=== PATIENT | female | born 1960 | race Caucasian/White ===

== ENCOUNTER 2016-08-14 17:58 | Inpatient (IN) | payer MEDICARE ==
--- NOTE | 2016-08-14 18:08 | EDPRACDOC ---
- History of Present Illness Symptoms Started: 3 WEEKS HPI: PT STATES "I THINK I HAVE PNEUMONIA AGAIN", STATES NON-PROD COUGH, SOBR, CHEST TIGHTNESS, PAIN BILATERAL RIBS, WHEEZING, NO N/V. PT STATES FINISHED ZPAK 3 DAYS AGO AND FEELS NO BETTER. USING NEBS AT HOME WITHOUT RELIEF. Symptoms: Reports: Cough, Fever, Headache, Nasal Symptoms, Myalgia Recently Treated Infections:: Reports: Pneumonia Recent Medications: Reports: Antibiotics Relevant History Of: Reports: COPD Shortness of Breath: Moderate Cough Frequency: Intermittent Cough Description: Reports: Non-productive Rhinorrhea: Reports: Clear Ear Symptoms: Reports: None Associated Signs and Symptoms: Reports: Cough, Fever, Headache, Nasal Symptoms, Myalgia <Prince Sanchez - Last Filed: 08/14/16 19:09> <Juan A España - Last Filed: 08/14/16 19:30> - General Information Stated Complaint: POSSIBLE PNEUMONIA Time Seen by Provider: 08/14/16 18:02 Home Medications: Home Medications Esomeprazole Mag Trihydrate [Nexium] 40 mg PO DAILY 02/26/15 Doxepin HCl 25 mg PO HS #30 03/02/15 Duloxetine HCl [Cymbalta] 60 mg PO DAILY #30 03/02/15 Gabapentin [Neurontin] 300 mg PO TID #100 03/02/15 Levothyroxine [Synthroid, Levoxyl] 75 mcg PO DAILY #30 03/02/15 Albuterol Sulfate [Proair Hfa] 2 puff INH Q4-6H PRN 01/09/16 Ibuprofen Tablet [Motrin] 800 mg PO TID PRN 01/09/16 Linaclotide [Linzess] 290 mcg PO DAILY PRN 01/09/16 Albuterol/Ipratropium Neb [Duoneb] 3 ml NEB RTQ6 #120 nebu 01/12/16 Atorvastatin Calcium [Lipitor] 40 mg PO DAILY 07/07/16 Calcium Carbonate/Vitamin D3 [Calcium 600 + Vit D 400 Softgl] 1 cap PO BID 07/07 Alprazolam [Xanax] 1 mg PO BID PRN 08/14/16 Metformin HCl [Metformin HCl ER] 500 mg PO DAILY 08/14/16 Oxycodone HCl [Oxycodone Immediate Release] 10 mg PO Q8H PRN 08/14/16 Promethazine [Phenergan] 25 mg PO Q8H PRN 08/14/16 Sumatriptan Succinate [Imitrex] 100 mg PO DIR PRN 08/14/16 Allergies/Adverse Reactions: Allergies Allergy/AdvReac Type Severity Reaction Status Date / Time acetaminophen Allergy Hives* Verified 07/07/16 13:04 [From Darvocet-N] propoxyphene HCl Allergy Hives* Verified 07/07/16 13:04 [From Darvon] propoxyphene napsylate Allergy Hives* Verified 07/07/16 13:04 [From Darvocet-N] ED Past Medical History - History Reviewed Yes Nurses notes reviewed and agree except as marked - Patient Medical History Neurological History: Reports: Cerebrovascular Accident Cardiac History: Reports: Hypertension (- resolved per pt), Hypercholesterolemia Respiratory History: Reports: COPD, Pneumonia (03/01) GI/ History: Reports: Gastroesophageal Reflux, Ulcer Musculoskeletal History: Reports: Arthritis Psychological History: Reports: Depression, Anxiety Systemic History: Reports: Cancer, Diabetes (With neuropathy), Hypothyroidism Additional Past Medical History: CHRONIC PAIN Surgical History: Reports: Hysterectomy, Tonsillectomy/Adnoidectomy - Family Medical History Reports: Hypertension (FATHER), Diabetes (MOTHER), Cancer (Father of lung cancer), Stroke (MATERNAL GRANDMOTHER), Respiratory Disorders (Mother with COPD) - Social Medical History Smoking Status: Light tobacco smoker (less than 5/day) ETOH: None Substance Abuse: None <Prince Sanchez - Last Filed: 08/14/16 19:09> EDM Review of Systems - Review of Systems Constitutional: Chills. negative: Fever Eyes: negative: Blurred Vision, Double Vision Ears: negative: Drainage, Pain Throat: Pain Nose: Congestion. negative: Discharge Respiratory: Cough, Shortness of Breath, Wheezing Cardiovascular: negative: Chest Pain, Palpitations Gastrointestinal: negative: Diarrhea, Nausea, Pain, Vomiting Genitourinary: negative: Dysuria, Frequency Neurological: Headache. negative: Dizziness, Numbness, Weakness Musculoskeletal: No Symptoms Reported Integumentary: No Symptoms Reported <Prince Sanchez - Last Filed: 08/14/16 19:09> - Physical Exam Constitutional: Alert (Awake), No apparent distress Oriented to: Time, Person, Place Last recorded Vital Signs: Oxygen Pulse Oxygen Saturation O2 Device Oxygen Flow Rate Fraction of Inspired Oxygen ( FIO2) - HEENT Head: Normal ( normocephalic) Eye Exam: Normal (PERRL, EOMI, Sclera white) Oropharynx: Normal (Pharynx:Moist without exudate,Gums-no swelling) Tympanic Membrane: Normal ENT EAC: Normal TMJ: Normal Nose: No Symptoms Reported (septum midline) Neck: Normal (FROM, trachea at midline) - Respiratory/Cardiovascular Respiratory: Wheezes. negative: Accessory Muscle Use, Retractions Cardiovascular: Normal (RRR without murmur, gallop or rub) - GI Auscultation: Normal (NABS) Palpation: Normal (Soft,No rebound or guarding, non distended) Tenderness: Non tender Staton's Sign: Negative - Musculoskeletal Back: Normal (Non-Tender) Extremities: Normal (Normal tone, Pulses 2+ No cyanosis or edema, FROM) - Integumentary Skin: Normal, Warm, Dry Lymphatics: Normal (no adenopathy) - Neurologic Memory Impaired: Normal Motor Function: Normal (Normal tone, Pulses 2+ No cyanosis or edema, FROM) Cranial Nerve: Normal (CN II-X11 intact sensation, strength 5/5) Cerebellar: Normal Mood Description: Normal Perception: Normal <Prince Sanchez - Last Filed: 08/14/16 19:09> - Physical Exam Last recorded Vital Signs: Last Vital Signs Temp 97.5 F 08/14/16 17:58 Pulse 92 08/14/16 18:42 Resp 21 08/14/16 18:42 BP 155/79 08/14/16 18:42 Pulse Ox 93 08/14/16 18:42 Oxygen Pulse Oxygen Saturation 93 O2 Device Oxygen Flow Rate 2 Fraction of Inspired Oxygen ( FIO2) <Juan A España - Last Filed: 08/14/16 19:30> - Differential Diagnosis Bronchitis, Otitis Media, Pneumonia - Re-evaluation Re-evaluation 1 Re-evaluation Time: 19:09 (BREATHING BETTER, HAS "MIGRAINE") - Results 08/14/16 18:26 08/14/16 18:26 08/14/16 19:09 Laboratory Results - last 24 hr 08/14/16 08/14/16 08/14/16 18:15 18:26 18:26 WBC RBC Hgb Hct MCV MCH MCHC RDW Plt Count MPV Neut % (Auto) Lymph % (Auto) [place] % (Auto) Eos % (Auto) Baso % (Auto) Absolute Neuts (auto) Absolute Lymphs (auto) PT INR APTT Puncture Site Right radial pH 7.480 H pCO2 39.0 pO2 54.0 L HCO3 29.0 H Total CO2 30.2 H Base Excess 5.2 H FiO2 % 0.21 Specimen Drawn By Piksa Sodium 138 Potassium 3.7 Chloride 103 Carbon Dioxide 27 Anion Gap 12 BUN 12 Creatinine 0.50 L Estimated GFR (MDRD) > 60 Glucose 102 H Calculated Osmolality 266 L Lactic Acid 2.4 H Calcium 8.9 Corrected Calcium 9.1 Total Bilirubin 0.8 AST 26 ALT 42 Alkaline Phosphatase 81 Troponin I < 0.01 Total Protein 7.0 Albumin 3.8 Lipase 120 08/14/16 08/14/16 18:26 18:26 WBC 13.1 H RBC 5.09 Hgb 14.6 Hct 43.1 MCV 85 MCH 28.6 MCHC 33.7 RDW 16.5 H Plt Count 320 MPV 7.6 Neut % (Auto) 72.9 Lymph % (Auto) 18.8 [place] % (Auto) 7.5 Eos % (Auto) 0.7 Baso % (Auto) 0.1 Absolute Neuts (auto) 9.43 H Absolute Lymphs (auto) 2.36 PT 10.4 INR 1.0 APTT 23.8 Puncture Site pH pCO2 pO2 HCO3 Total CO2 Base Excess FiO2 % Specimen Drawn By Sodium Potassium Chloride Carbon Dioxide Anion Gap BUN Creatinine Estimated GFR (MDRD) Glucose Calculated Osmolality Lactic Acid Calcium Corrected Calcium Total Bilirubin AST ALT Alkaline Phosphatase Troponin I Total Protein Albumin Lipase - EKG EKG #1 EKG Time: 17:56 -: Yes EKG interpreted by me Rate: bpm: 100 [place]: Normal Rhythm: NSR Block: None Hypertrophy: None ST: Normal Comparison: 01/09/16 (NO CHANGE) - Diagnostic Imaging CXR Image interpreted by: Radiologist CHEST 2 VIEW COMPARISON: 01/10/2016 and earlier, including CT chest 02/26/2015. FINDINGS: Cardiac silhouette normal in size, unchanged. Thoracic aorta atherosclerotic, unchanged. Hilar and mediastinal contours otherwise unremarkable. Prominent bronchovascular markings diffusely and moderate to marked central peribronchial thickening, more so than on prior examinations. Focal airspace consolidation in the right middle lobe, silhouetting the right heart border, best seen on the lateral image. No confluent airspace consolidation elsewhere. No pleural effusions. Visualized bony thorax intact. IMPRESSION: Right middle lobe pneumonia superimposed upon moderate to severe changes of acute bronchitis and/or asthma. - Additional Information DISCUSSED WITH DR ESPAÑA, WILL DISCUSS WITH HOSPITALIST. <Prince Sanchez - Last Filed: 08/14/16 19:09> - Results 08/14/16 18:26 08/14/16 18:26 WBC 13.1 xk/uL (3.8-10.8) H 08/14/16 18:26 RBC 5.09 xM/uL (4.20-5.40) 08/14/16 18:26 Hgb 14.6 g/dL (12.0-16.0) 08/14/16 18:26 Hct 43.1 % (36-47) 08/14/16 18:26 MCV 85 fL (81-99) 08/14/16 18: MCH 28.6 pg (27-32) 08/14/16 18:26 MCHC 33.7 g/dl (33-36) 08/14/16 18:26 RDW 16.5 % (11.5-14.5) H 08/14/16 18:26 Plt Count 320 xk/uL (130-400) 08/14/16 18:26 MPV 7.6 fL (7.4-10.4) 08/14/16 18:26 Neut % (Auto) 72.9 % (45-76) 08/14/16 18: Lymph % (Auto) 18.8 % (17-44) 08/14/16 18:26 [place] % (Auto) 7.5 % (3-10) 08/14/16 18:26 Eos % (Auto) 0.7 % (0-5) 08/14/16 18:26 Baso % (Auto) 0.1 % (0-2) 08/14/16 18:26 Absolute Neuts (auto) 9.43 xk/uL (1.7-8.2) H 08/14/16 18:26 Absolute Lymphs (auto) 2.36 xk/uL (0.65-4.75) 08/14/16 18:26 PT 10.4 SEC (9.2-11.2) 08/14/16 18:26 INR 1.0 08/14/16 18:26 APTT 23.8 SEC (22-35) 08/14/16 18:26 Puncture Site Right radial 08/14/16 18:15 pH 7.480 pH UNITS (7.35-7.45) H 08/14/16 18:15 pCO2 39.0 mmHg (35-45) 08/14/16 18:15 pO2 54.0 mmHg (80-100) L 08/14/16 18:15 HCO3 29.0 MMOL/L (22-26) H 08/14/16 18:15 Total CO2 30.2 MMOL/L (23-27) H 08/14/16 18:15 Base Excess 5.2 (+/- 2) H 08/14/16 18:15 FiO2 % 0.21 08/14/16 18:15 Specimen Drawn By Piksa 08/14/16 18:15 Sodium 138 mEq/L (137-146) 08/14/16 18:26 Potassium 3.7 mEq/L (3.5-5.1) 08/14/16 18:26 Chloride 103 mEq/L (98-107) 08/14/16 18:26 Carbon Dioxide 27 mMOL/L (22-33) 08/14/16 18:26 Anion Gap 12 mEq/L (8-16) 08/14/16 18:26 BUN 12 MG/DL (7-17) 08/14/16 18:26 Creatinine 0.50 MG/DL (0.52-1.04) L 08/14/16 18:26 Estimated GFR (MDRD) > 60 mL/min (>=60) 08/14/16 18:26 Glucose 102 MG/DL (70-99) H 08/14/16 18:26 Calculated Osmolality 266 MOs/Kg (270-290) L 08/14/16 18:26 Lactic Acid 2.4 mEq/L (0.7-2.1) H 08/14/16 18:26 Calcium 8.9 MG/DL (8.4-10.2) 08/14/16 18:26 Corrected Calcium 9.1 MG/DL (8.4-10.2) 08/14/16 18:26 Total Bilirubin 0.8 MG/DL (0.2-1.3) 08/14/16 18:26 AST 26 IU/L (14-36) 08/14/16 18:26 ALT 42 IU/L (9-52) 08/14/16 18:26 Alkaline Phosphatase 81 IU/L (38-126) 08/14/16 18:26 Troponin I < 0.01 ng/mL (<.04) 08/14/16 18:26 Total Protein 7.0 G/DL (6.3-8.2) 08/14/16 18:26 Albumin 3.8 G/DL (3.5-5.0) 08/14/16 18:26 Lipase 120 U/L (23-300) 08/14/16 18:26 Urine Color Yellow 08/14/16 19:06 Urine Clarity Sl cldy 08/14/16 19:06 Urine pH 6.0 (5.0-8.0) 08/14/16 19:06 Ur Specific [place] 1.025 (1.003-1.035) 08/14/16 19:06 Urine Protein 1+ (NEG/TRACE) H 08/14/16 19:06 Urine Glucose (UA) Neg (NEGATIVE) 08/14/16 19:06 Urine Ketones Neg (NEGATIVE) 08/14/16 19:06 Urine Occult Blood Neg (NEG/TRACE) 08/14/16 19:06 Urine Nitrite Neg (NEGATIVE) 08/14/16 19:06 Urine Bilirubin Neg (NEGATIVE) 08/14/16 19:06 Urine Urobilinogen <2.0 MG/DL (0-1) 08/14/16 19:06 Ur Leukocyte Esterase Neg (NEGATIVE) 08/14/16 19:06 Urine RBC 0-2 (0-5) 08/14/16 19:06 Urine WBC 2-5 (0-5) 08/14/16 19:06 Ur Epithelial Cells 3+ 08/14/16 19:06 Urine Bacteria Few (NEG/FEW) 08/14/16 19:06 Urine Mucus Sm amt (NEG/OCC) 08/14/16 19:06 Lab Results 08/14/16 08/14/16 08/14/16 19:06 18:26 18:26 WBC 13.1 H RBC 5.09 Hgb 14.6 Hct 43.1 MCV 85 MCH 28.6 MCHC 33.7 RDW 16.5 H Plt Count 320 MPV 7.6 Neut % (Auto) 72.9 Lymph % (Auto) 18.8 [place] % (Auto) 7.5 Eos % (Auto) 0.7 Baso % (Auto) 0.1 Absolute Neuts (auto) 9.43 H Absolute Lymphs (auto) 2.36 PT 10.4 INR 1.0 APTT 23.8 Puncture Site pH pCO2 pO2 HCO3 Total CO2 Base Excess FiO2 % Specimen Drawn By Sodium Potassium Chloride Carbon Dioxide Anion Gap BUN Creatinine Estimated GFR (MDRD) Glucose Calculated Osmolality Lactic Acid Calcium Corrected Calcium Total Bilirubin AST ALT Alkaline Phosphatase Troponin I Total Protein Albumin Lipase Urine Color Yellow Urine Clarity Sl cldy Urine pH 6.0 Ur Specific [place] 1.025 Urine Protein 1+ H Urine Glucose (UA) Neg Urine Ketones Neg Urine Occult Blood Neg Urine Nitrite Neg Urine Bilirubin Neg Urine Urobilinogen <2.0 Ur Leukocyte Esterase Neg Urine RBC 0-2 Urine WBC 2-5 Ur Epithelial Cells 3+ Urine Bacteria Few Urine Mucus amt 08/14/16 08/14/16 08/14/16 18:26 18:26 18:15 WBC RBC Hgb Hct MCV MCH MCHC RDW Plt Count MPV Neut % (Auto) Lymph % (Auto) [place] % (Auto) Eos % (Auto) Baso % (Auto) Absolute Neuts (auto) Absolute Lymphs (auto) PT INR APTT Puncture Site Right radial pH 7.480 H pCO2 39.0 pO2 54.0 L HCO3 29.0 H Total CO2 30.2 H Base Excess 5.2 H FiO2 % 0.21 Specimen Drawn By Piksa Sodium 138 Potassium 3.7 Chloride 103 Carbon Dioxide 27 Anion Gap 12 BUN 12 Creatinine 0.50 L Estimated GFR (MDRD) > 60 Glucose 102 H Calculated Osmolality 266 L Lactic Acid 2.4 H Calcium 8.9 Corrected Calcium 9.1 Total Bilirubin 0.8 AST 26 ALT 42 Alkaline Phosphatase 81 Troponin I < 0.01 Total Protein 7.0 Albumin 3.8 Lipase 120 Urine Color Urine Clarity Urine pH Ur Specific [place] Urine Protein Urine Glucose (UA) Urine Ketones Urine Occult Blood Urine Nitrite Urine Bilirubin Urine Urobilinogen Ur Leukocyte Esterase Urine RBC Urine WBC Ur Epithelial Cells Urine Bacteria Urine Mucus <Juan A España - Last Filed: 08/14/16 19:30> - Departure Education/Counseling Given To: Patient Education/Counseling Given Regarding: Diagnosis, Treatment, Prognosis, Follow Up <Prince Sanchez - Last Filed: 08/14/16 19:09> - Departure Yes I personally saw and evaluated the patient. Disposition: Admit IP To This Hospital Decision to Admit Time: 19:30 Decision to admit date: 08/14/16 Decision to admit: from ED - Physician Consulted Hospitalist Time Called: 19:30 Provider Called: Jay Rose Time Hospital Laboratory Technician Returned Call: 19:30 <Juan A España - Last Filed: 08/14/16 19:30> - Departure Condition: Stable Final Diagnosis: Community acquired pneumonia, Acute respiratory failure with hypoxia, Failure of outpatient treatment, Severe sepsis Right lower lobe pneumonia Qualifiers: Pneumonia type: due to unspecified organism Qualified Code(s): J18.1 - Lobar pneumonia, unspecified organism Referrals: None,No Provider [Primary Care Provider] - One Week Prescriptions: No Action Esomeprazole Mag Trihydrate [Nexium] 40 mg PO DAILY Duloxetine HCl [Cymbalta] 60 mg PO DAILY #30 Doxepin HCl 25 mg PO HS #30 Gabapentin [Neurontin] 300 mg PO TID #100 Levothyroxine [Synthroid, Levoxyl] 75 mcg PO DAILY #30 Ibuprofen Tablet [Motrin] 800 mg PO TID PRN PRN Reason: Pain Linaclotide [Linzess] 290 mcg PO DAILY PRN PRN Reason: Constipation Albuterol Sulfate [Proair Hfa] 2 puff INH Q4-6H PRN PRN Reason: Shortness Of Breath Albuterol/Ipratropium Neb [Duoneb] 3 ml NEB RTQ6 #120 nebu Calcium Carbonate/Vitamin D3 [Calcium 600 + Vit D 400 Softgl] 1 cap PO BID Atorvastatin Calcium [Lipitor] 40 mg PO DAILY Promethazine [Phenergan] 25 mg PO Q8H PRN PRN Reason: Nausea/Vomiting Oxycodone HCl [Oxycodone Immediate Release] 10 mg PO Q8H PRN PRN Reason: Pain Metformin HCl [Metformin HCl ER] 500 mg PO DAILY Alprazolam [Xanax] 1 mg PO BID PRN PRN Reason: Anxiety Sumatriptan Succinate [Imitrex] 100 mg PO DIR PRN PRN Reason: Migraine Headache
[2016-08-14] MEDS ORDERED: Albuterol/Ipratropium Neb 3 ML NEB NEB ONE ×2 (18:09→19:13)
[2016-08-14 18:18] LABS: ABG Draw Site Right Radial; ALLEN'S TEST PASS; BEb 5.2 (+/- 2); TCO2 30.2 MMOL/L (23-27)
[2016-08-14 18:35] LABS: AUTOMATED BASOPHIL 0.1 % (0-2); AUTOMATED EOSINOPHIL 0.7 % (0-5); AUTOMATED LYMPH 18.8 % (17-44); AUTOMATED MONOCYTE 7.5 % (3-10); AUTOMATED NEUTROPHIL 72.9 % (45-76); MPV 7.6 fL (7.4-10.4)
[2016-08-14 18:47] LABS: PARTIAL THROMB. TIME 23.8 SEC (22-35)
[2016-08-14 18:48] LABS: BLOOD UREA NITROGEN 12 MG/DL (7-17); CALC CORRECTED 9.1 MG/DL (8.4-10.2); CALCIUM 8.9 MG/DL (8.4-10.2); CALCULATED OSMOLALITY 266 MOs/Kg (270-290); CHLORIDE 103 mEq/L (98-107); GLUCOSE 102 MG/DL (70-99); SODIUM LEVEL 138 mEq/L (137-146)
--- NOTE | 2016-08-14 19:08 | DIRPT ---
CLINICAL DATA: Three week history of cough, chest congestion and shortness of breath. EXAM: CHEST 2 VIEW COMPARISON: 01/10/2016 and earlier, including CT chest 02/26/2015. FINDINGS: Cardiac silhouette normal in size, unchanged. Thoracic aorta atherosclerotic, unchanged. Hilar and mediastinal contours otherwise unremarkable. Prominent bronchovascular markings diffusely and moderate to marked central peribronchial thickening, more so than on prior examinations. Focal airspace consolidation in the right middle lobe, silhouetting the right heart border, best seen on the lateral image. No confluent airspace consolidation elsewhere. No pleural effusions. Visualized bony thorax intact. IMPRESSION: Right middle lobe pneumonia superimposed upon moderate to severe changes of acute bronchitis and/or asthma. Electronically Signed By: Jose Cabrera M.D. On: 08/14/2016 19:05
[2016-08-14] MEDS ORDERED: Levofloxacin 500 mg/100 ml D5W 500 MG/100 ML RTU IV ONE (19:13)
[2016-08-14] MEDS ORDERED: KETOROLAC TROMETH 30 MG/ML VIAL IV ONE (19:13)
[2016-08-14] MEDS ORDERED: DIPHENHYDRAMINE 50 MG/ML VIAL IV ONE (19:13)
[2016-08-14] MEDS ORDERED: NS 1,000 ML IV ONE ×3 (19:13→23:12)
[2016-08-14] MEDS ORDERED: METOCLOPRAMIDE 10 MG/2 ML VIAL IV ONE (19:13)
[2016-08-14 19:25] LABS: LEUKOCYTES/URINE NEG (NEGATIVE); NITRITE/URINE NEG (NEGATIVE); RBC/URINE 0-2 (0-5); URINE OCCULT BLOOD NEG (NEG/TRACE)
--- NOTE | 2016-08-14 20:48 | HISTPHYS ---
- Chief Complaint cough, not feeling well - History of Present Illness PRIMARY CARE PROVIDER: Dr. Everett Smith HPI: The patient is a 56 yo woman who presents with shortness of breath. She has been sick for 3 weeks. She had an appointment with her primary care doctor, who gave her a Z pack and an antihistamine, but she continued to get worse. She does have some chest pain with shortness of breath. The chest pain is primarily associated with coughing. Onset: 3 weeks ago. Worse in the last several days. Duration: intermittent. Location: Left and substernal and also bilateral lateral lower ribs (with coughing). Radiation: none. Character: Can't get a good breath. Alleviated by: Nothing. Exacerbated by: Exertion. Associated Symptoms: Chest pain only with coughing. Occasional palpitations after coughing. Coughing that is not very productive. Wheezing. Shortness of breath. No fever but had chills. Diaphoresis. Nausea. No diarrhea. Treatments: none at home except usual medications. The patient states that normally when she has a respiratory infection and flare- up of her respiratory issues, she usually gets very sick and requires IV antibiotics. She states that usually she has IV Levaquin and IV vancomycin. She does have a history of MRSA. She reports she thinks she has had MRSA pneumonia in the past. - Medical History Cardiac History: Reports: Hypertension (- resolved per pt), Hypercholesterolemia Respiratory History: Reports: COPD, Pneumonia (03/01) GI/ History: Reports: Gastroesophageal Reflux, Ulcer Musculoskeletal History: Reports: Arthritis Systemic History: Reports: Cancer, Diabetes (Borderline. With neuropathy), Hypothyroidism Neurological History: Reports: Cerebrovascular Accident Psychological History: Reports: Depression, Anxiety - Surgical History Reports: Hysterectomy, Tonsillectomy/Adnoidectomy - Medictions/Allergies Allergies acetaminophen [From Darvocet-N] Allergy (Verified 07/07/16 13:04) Hives* propoxyphene HCl [From Darvon] Allergy (Verified 07/07/16 13:04) Hives* propoxyphene napsylate [From Darvocet-N] Allergy (Verified 07/07/16 13:04) Hives* Current Medication List: Reviewed Home Medications Esomeprazole Mag Trihydrate [Nexium] 40 mg PO DAILY 02/26/15 Doxepin HCl 25 mg PO HS #30 03/02/15 Duloxetine HCl [Cymbalta] 60 mg PO DAILY #30 03/02/15 Gabapentin [Neurontin] 300 mg PO TID #100 03/02/15 Levothyroxine [Synthroid, Levoxyl] 75 mcg PO DAILY #30 03/02/15 Albuterol Sulfate [Proair Hfa] 2 puff INH Q4-6H PRN 01/09/16 Ibuprofen Tablet [Motrin] 800 mg PO TID PRN 01/09/16 Linaclotide [Linzess] 290 mcg PO DAILY PRN 01/09/16 Albuterol/Ipratropium Neb [Duoneb] 3 ml NEB RTQ6 #120 nebu 01/12/16 Atorvastatin Calcium [Lipitor] 40 mg PO DAILY 07/07/16 Calcium Carbonate/Vitamin D3 [Calcium 600 + Vit D 400 Softgl] 1 cap PO BID 07/07 Alprazolam [Xanax] 1 mg PO BID PRN 08/14/16 Metformin HCl [Metformin HCl ER] 500 mg PO DAILY 08/14/16 Oxycodone HCl [Oxycodone Immediate Release] 10 mg PO Q8H PRN 08/14/16 Promethazine [Phenergan] 25 mg PO Q8H PRN 08/14/16 Sumatriptan Succinate [Imitrex] 100 mg PO DIR PRN 08/14/16 - Family History Reports: Hypertension (FATHER), Diabetes (MOTHER), Cancer (Father of lung cancer), Stroke (MATERNAL GRANDMOTHER), Respiratory Disorders (Mother with COPD) - Social History Smoking Status: Light tobacco smoker (less than 5/day) Social History: Denies: Alcohol Use, Substance Use Disorder - Review of Systems GENERAL: No fever but had chills. Diaphoresis. Positive for fatigue/malaise. HEENT: No ear pain or discharge. No nasal discharge or bleeding. No throat pain or swelling. No eye pain or eye redness. RESPIRATORY: Cough, wheezing, and shortness of breath. CARDIOVASCULAR: Chest pain and palpitations. GI: Nausea. No abdominal pain, vomiting, diarrhea, constipation, or bloody stool. NEUROLOGICAL: No headache or focal weakness. INTEGUMENT: no rashes, itching, or lesions. LYMPHATIC SYSTEM: no lymph node swelling or pain. MUSCULOSKELETAL: no new pain or joint swelling. GENITOURINARY: No dysuria or hematuria. ENDOCRINE: No polyuria or polydipsia. HEME: No chronic anemia, bleeding, or easy bruising. - Physical Exam Vital Signs: Initial Vitals Temperature 97.5 F 08/14/16 17:58 Pulse Rate 100 08/14/16 17:58 Respiratory Rate 19 08/14/16 17:58 Blood Pressure 160/88 08/14/16 17:58 Pulse Oxygen Saturation 91 08/14/16 17:58 Weight: 65.7 kg Height: 5 feet 2 inches BMI: 26.5 - Other Exam Other Exam Findings: GENERAL: Ill-appearing, well nourished, in acute distress. HEENT: Normocephalic, atraumatic; pupils equal and round. Nares patent, without discharge or bleeding. No oropharyngeal lesions or erythema. Mucous membranes are dry. NECK: is supple, no masses, trachea midline. RESPIRATORY: Clear to auscultation bilaterally. Chest wall movements are symmetric. Tachypnea. No use of accessory muscles to breathe. Wheezing. Coarse breath sounds/rhonchi. CARDIOVASCULAR: Normal S1, S2. No rubs, or gallops. PMI non-displaced. Carotids : no carotid bruits. Mild tachycardia. DP pulses 2+ bilaterally. GI: soft, nontender, non-distended, normal active bowel sounds. No hepatosplenomegaly. INTEGUMENT: Clean, dry, and intact. No rashes. No lesions. MUSCULOSKELETAL: Moving all extremities. No cyanosis. No clubbing. Edema: none bilaterally. NEUROLOGICAL: Cranial nerves 2-12 grossly intact. Motor 4/5 throughout. Reflexes : 2+ bilaterally. Babinski: toes downgoing bilaterally. Intact Finger to nose. Sensory grossly intact to light touch. Intact rapid alternating movements bilaterally. No pronator drift. PSYCHIATRIC: Fully oriented. Normal and appropriate affect. LYMPHATIC: No cervical lymphadenopathy. No supraclavicular lymphadenopathy. - Lab Results Laboratory Results - last 24 hr 08/14/16 08/14/16 08/14/16 18:15 18:26 18:26 WBC RBC Hgb Hct MCV MCH MCHC RDW Plt Count MPV Neut % (Auto) Lymph % (Auto) [place] % (Auto) Eos % (Auto) Baso % (Auto) Absolute Neuts (auto) Absolute Lymphs (auto) PT INR APTT Puncture Site Right radial pH 7.480 H pCO2 39.0 pO2 54.0 L HCO3 29.0 H Total CO2 30.2 H Base Excess 5.2 H FiO2 % 0.21 Specimen Drawn By [place] Sodium 138 Potassium 3.7 Chloride 103 Carbon Dioxide 27 Anion Gap 12 BUN 12 Creatinine 0.50 L Estimated GFR (MDRD) > 60 Glucose 102 H Calculated Osmolality 266 L Lactic Acid 2.4 H Calcium 8.9 Corrected Calcium 9.1 Total Bilirubin 0.8 AST 26 ALT 42 Alkaline Phosphatase 81 Troponin I < 0.01 Total Protein 7.0 Albumin 3.8 Lipase 120 Urine Color Urine Clarity Urine pH Ur Specific [place] Urine Protein Urine Glucose (UA) Urine Ketones Urine Occult Blood Urine Nitrite Urine Bilirubin Urine Urobilinogen Ur Leukocyte Esterase Urine RBC Urine WBC Ur Epithelial Cells Urine Bacteria Urine Mucus 08/14/16 08/14/16 08/14/16 18:26 18:26 19:06 WBC 13.1 H RBC 5.09 Hgb 14.6 Hct 43.1 MCV 85 MCH 28.6 MCHC 33.7 RDW 16.5 H Plt Count 320 MPV 7.6 Neut % (Auto) 72.9 Lymph % (Auto) 18.8 [place] % (Auto) 7.5 Eos % (Auto) 0.7 Baso % (Auto) 0.1 Absolute Neuts (auto) 9.43 H Absolute Lymphs (auto) 2.36 PT 10.4 INR 1.0 APTT 23.8 Puncture Site pH pCO2 pO2 HCO3 Total CO2 Base Excess FiO2 % Specimen Drawn By Sodium Potassium Chloride Carbon Dioxide Anion Gap BUN Creatinine Estimated GFR (MDRD) Glucose Calculated Osmolality Lactic Acid Calcium Corrected Calcium Total Bilirubin AST ALT Alkaline Phosphatase Troponin I Total Protein Albumin Lipase Urine Color Yellow Urine Clarity Sl cldy Urine pH 6.0 Ur Specific [place] 1.025 Urine Protein 1+ H Urine Glucose (UA) Neg Urine Ketones Neg Urine Occult Blood Neg Urine Nitrite Neg Urine Bilirubin Neg Urine Urobilinogen <2.0 Ur Leukocyte Esterase Neg Urine RBC 0-2 Urine WBC 2-5 Ur Epithelial Cells 3+ Urine Bacteria Few Urine Mucus Sm amt - Diagnostic Findings EK beats per minute. Normal sinus rhythm. Reviewed EKG personally. Chest x-ray, viewed personally: EXAM: CHEST 2 VIEW COMPARISON: 01/10/2016 and earlier, including CT chest 02/26/2015. FINDINGS: Cardiac silhouette normal in size, unchanged. Thoracic aorta atherosclerotic, unchanged. Hilar and mediastinal contours otherwise unremarkable. Prominent bronchovascular markings diffusely and moderate to marked central peribronchial thickening, more so than on prior examinations. Focal airspace consolidation in the right middle lobe, silhouetting the right heart border, best seen on the lateral image. No confluent airspace consolidation elsewhere. No pleural effusions. Visualized bony thorax intact. IMPRESSION: Right middle lobe pneumonia superimposed upon moderate to severe changes of acute bronchitis and/or asthma. - Assessment (1) Sepsis A41.9 - SEPSIS, UNSPECIFIED ORGANISM Acute Present on Admission: Yes Qualifiers: Sepsis type: S Present on admission. Criteria: White blood cells 13.1. Pulse 100. Lactic acid is 2.4. Source: pneumonia. Plan: Sepsis order set. IV antibiotics. IV fluids to provide volume. Monitor for signs of volume depletion, monitor blood pressure carefully. If still hypotensive with IV fluids consider pressors. Close monitoring. Telemetry. IVF: initial IVF 30 mL/kg x 1, then 250 mL/hr x 1 L, then maintenance IVF. (2) Bacterial pneumonia J15.9 - UNSPECIFIED BACTERIAL PNEUMONIA Acute Present on Admission: Yes Pneumonia. Severe. Requiring continuous oxygen support. Type: Community acquired pneumonia. Patient failed outpatient management with appropriate antibiotics. Patient reports that with pneumonia in the past she is needed IV Levaquin and IV vancomycin. She reports history of MRSA and MRSA pneumonia. Criteria for diagnosis: Chest x-ray suggestive of pneumonia, rhonchi on physical exam. Likely bacterial. Plan: Sputum culture has been ordered. Treat with IV Levaquin. Failed outpatient management with azithromycin. Will add IV vancomycin given patient's history. Monitor oxygen saturation levels. (3) Hypoxia R09.02 - HYPOXEMIA Acute Present on Admission: Yes Patient has dyspnea and is not improving. Patient's PO2 is low. Plan: Place patient on oxygen by nasal cannula and increase to Venti Mask 40% as needed. Monitor oxygen saturation levels and keep O2 sats greater than 92%. (4) COPD exacerbation J44.1 - CHRONIC OBSTRUCTIVE PULMONARY DISEASE W (ACUTE) EXACERBATION Acute Present on Admission: Yes COPD exacerbation, severe. Plan: Nebs of Duoneb q 6 hours scheduled and albuterol q 2 hours prn. Sputum culture ordered. IV Levaquin. IV methylprednisolone. Continuous oxygen support. Keep sats below 95% due to COPD. Case Care Discussed with: Patient, Nursing Staff Total Time: 60 min - Focused CV Perfusion Exam Date exam occurred: 08/14/16 Time of Exam: 22:00 Vital Signs: Vitals: See vitals section. Respiratory: Chest non-tender, Decreased breath sounds, Rhonchi Cardiovascular/Chest: Normal (Normal S1, S2), Tachycardia Capillary Refill: Immediate Peripheral pulses: Full: Radial (R), Radial (L), Dorsalis pedis (R), Dorsalis pedis (L), Posterior tibialis (R), Posterior tibialis (L) Skin Color: Unremarkable Skin Turgor: <3 Seconds
[2016-08-14 22:19] VITALS: BMI 28.3
[2016-08-14] MEDS ORDERED: ALBUTEROL 0.083% 3 ML NEB NEB PRN (23:06)
[2016-08-14] MEDS ORDERED: Non-Formulary Medication ITEM (Oxycodone Hcl [Oxycodone Immediate Release] 10 MG) PO PRN (23:07)
[2016-08-14] MEDS ORDERED: SUMATRIPTAN SUCCINATE 100 MG PO PRN (23:07)
[2016-08-14] MEDS ORDERED: Non-Formulary Medication ITEM (Alprazolam [Xanax] 1 MG) PO PRN (23:07)
[2016-08-14] MEDS ORDERED: ONDANSETRON HCL 4 MG/2 ML VIAL IV PRN (23:11)
[2016-08-14] MEDS ORDERED: PROMETHAZINE 25 MG/ML VIAL IV PRN (23:11)
[2016-08-14] MEDS ORDERED: GUAIFEN 100 MG-DEXTROMETH 10 MG PER 5 ML PO PRN (23:11)
[2016-08-14] MEDS ORDERED: BENZONATATE 100 MG PERLES PO PRN (23:11)
[2016-08-14] MEDS ORDERED: ACETAMINOPHEN 325 MG/TAB TABLET PO PRN (23:11)
[2016-08-14] MEDS ORDERED: TEMAZEPAM 15 MG CAP PO PRN (23:11)
[2016-08-14] MEDS ORDERED: Aluminum;Magnesium;Simethicone 30 ML UDC PO PRN (23:11)
[2016-08-14] MEDS ORDERED: SENNA CONCENTRATE TAB PO PRN (23:11)
[2016-08-14] MEDS ORDERED: BISACODYL 5 MG TAB PO PRN (23:11)
[2016-08-14] MEDS ORDERED: ACETAMINOPHEN 325 MG SUPP PR PRN (23:11)
[2016-08-14] MEDS ORDERED: GLUCAGON 1 MG VIAL SQ PRN (23:12)
[2016-08-14] MEDS ORDERED: GLUCOSE (ORAL GEL) 15 GM TUBE PO PRN (23:12)
[2016-08-14] MEDS ORDERED: DEXTROSE 25 GM/50 ML PFS IV PRN (23:12)
[2016-08-14] MEDS ORDERED: MORPHINE SULFATE 30 MG PO SCH (23:15)
[2016-08-14] MEDS ORDERED: Vancomycin HCl 0 MG in D5W 500 ML IV SCH (23:45)
[2016-08-14] MEDS ORDERED: Pharmacy Order Set Alert SCH (23:45)
[2016-08-15] MEDS: OXYCODONE HCL 5 MG TABLET PO PRN ×2 (00:02→17:15)
[2016-08-15] MEDS: ALPRAZOLAM 0.5 MG TAB PO PRN ×3 (00:02→23:51)
[2016-08-15] MEDS: Albuterol/Ipratropium Neb 3 ML NEB NEB SCH ×4 (00:08→20:04)
[2016-08-15] MEDS: ENOXAPARIN 40 MG/0.4 ML PFS SQ SCH ×2 (00:12→20:13)
[2016-08-15] MEDS: REGULAR INSULIN 100 UNITS/ML - 3 ML VIAL SQ SCH ×5 (00:12→20:14)
[2016-08-15] MEDS: GABAPENTIN 300 MG CAP PO SCH ×4 (00:13→20:10)
[2016-08-15] MEDS: DOXEPIN 25 MG CAP PO SCH ×2 (00:13→20:10)
[2016-08-15] MEDS ORDERED: MORPHINE 15 MG EXT REL TAB PO ONE (01:03)
[2016-08-15] MEDS ORDERED: NS 1,000 ML IV ONE (01:14)
[2016-08-15] MEDS: NICOTINE 14 MG PATCH TOP SCH ×2 (01:20→23:58)
[2016-08-15] MEDS: METHYLPREDNISOLONE 125 MG/2 ML VIAL IV SCH ×3 (03:51→17:03)
[2016-08-15] MEDS: NS 1,000 ML IV SCH ×2 (04:00→09:29)
[2016-08-15] MEDS: PANTOPRAZOLE 40 MG TAB PO SCH (06:12)
[2016-08-15 06:57] LABS: BLOOD UREA NITROGEN 10 MG/DL (7-17); CALCULATED OSMOLALITY 267 MOs/Kg (270-290); CHLORIDE 107 mEq/L (98-107); GLUCOSE 94 MG/DL (70-99); SODIUM LEVEL 139 mEq/L (137-146)
[2016-08-15] MEDS: MORPHINE 15 MG EXT REL TAB PO SCH ×2 (08:14→20:10)
[2016-08-15] MEDS: ATORVASTATIN 40 MG TAB PO SCH (08:14)
[2016-08-15] MEDS: LEVOTHYROXINE 75 MCG (0.075 MG) TAB PO SCH (08:14)
[2016-08-15] MEDS: DULOXETINE 60 MG CAPSULE PO SCH (08:14)
[2016-08-15] MEDS ORDERED: Vaccine Screening Complete SCH (09:00)
[2016-08-15] MEDS ORDERED: CALCIUM CARBONATE PO SCH (09:00)
[2016-08-15] MEDS ORDERED: [UNRECOGNIZED DRUG - OTHER] PO SCH (09:00)
[2016-08-15] MEDS ORDERED: Non-Formulary Medication ITEM (Esomeprazole Mag Trihydrate [Nexium] 40 MG) PO SCH (09:00)
[2016-08-15] MEDS ORDERED: VITAMIN D3 PO SCH (09:00)
[2016-08-15] MEDS: CALCIUM CARBONATE + VITAMIN D 500 MG TAB PO SCH ×2 (11:36→17:03)
[2016-08-15] MEDS: SUMATRIPTAN SUCCINATE 25 MG TAB PO PRN (15:11)
--- NOTE | 2016-08-15 15:18 | GENMEDPROG ---
Subjective Note: Patient in bed responsive follows commands. Still visibly short of breath coughing producing fair amount thick sputum. Still with audible wheezes and rhonchi as. Still on Venti mask. Notes Reviewed: Yes Events from last night noted and discussed with Clinical Staff Current Medication List: Reviewed Currently: Reports: Cough, Wheezing, AMARO, SOB, Sputum, Reflux Sx DVT Prophylaxis: Yes - Physical Examination Vital Signs and I&O: Last Vital Signs Temp 98.2 F 08/15/16 14:00 Pulse 118 08/15/16 14:00 Resp 18 08/15/16 14:00 BP 160/88 08/15/16 14:00 Pulse Ox 96 08/15/16 14:00 Oxygen Pulse Oxygen Saturation 96 O2 Device Venturi Mask Oxygen Flow Rate 8 Fraction of Inspired Oxygen ( 40 FIO2) Intake & Output 08/12/16 08/13/16 08/14/16 08/15/16 23:59 23:59 23:59 23:59 Intake Total 1600 2793 Output Total 200 2500 Balance 1400 293 Patient's weight 70.364 kg General: Alert, Cooperative, No acute distress HEENT: Normal, PERRLA, EOMI, Anicteric Sclera Neck: Non-tender, No Masses palpable, Limited range of motion Lymphatics: Normal (no adenopathy) Respiratory: Diminished, Rhonchi, Tachypnea, Wheezes. negative: Accessory Muscle Use, Retractions Cardiovascular: Regular rate, Normal S1, Normal S2, Murmurs GI: Normal bowel sounds, Soft, Non tender, No hepatospenomegaly, No masses Extremities/Musculoskeletal: Edema, Cyanosis, DJD Skin: Warm,Dry and Intact, No rashes, Other (Multiple tattoos) Neurological: Normal speech, Cranial nerves 3-12 NL Psych/Mental Status: Anxious Lab/DI/Studies Reviewed: Allergies acetaminophen [From Darvocet-N] Allergy (Verified 07/07/16 13:04) Hives* propoxyphene HCl [From Darvon] Allergy (Verified 07/07/16 13:04) Hives* propoxyphene napsylate [From Darvocet-N] Allergy (Verified 07/07/16 13:04) Hives* Last Vital Signs Temp 98.2 F 08/15/16 14:00 Pulse 118 08/15/16 14:00 Resp 18 08/15/16 14:00 BP 160/88 08/15/16 14:00 Pulse Ox 96 08/15/16 14:00 08/15/16 05:32 08/15/16 05:32 - Assessment (1) Acute respiratory failure with hypoxia Acute J96.01 - ACUTE RESPIRATORY FAILURE WITH HYPOXIA Comment/Plan: Continue supplemental O2 nebs and pulmonary toilet. Monitor pulmonary status. PA and lateral chest x-ray and ABG will be obtained the morning. (2) Right lower lobe pneumonia Acute J18.1 - LOBAR PNEUMONIA, UNSPECIFIED ORGANISM Qualifiers: Pneumonia type: due to unspecified organism Aspiration pneumonia type: A Qualified Code(s): J18.1 - Lobar pneumonia, unspecified organism Comment/Plan: Continue antibiotics, currently patient received Levaquin and vancomycin. Continue aggressive pulmonary toilet and mucolytics. (3) COPD exacerbation Acute J44.1 - CHRONIC OBSTRUCTIVE PULMONARY DISEASE W (ACUTE) EXACERBATION Comment/Plan: Continue IV steroids and nebulized bronchodilators. (4) Gastroesophageal reflux disease Chronic K21.9 - GASTRO-ESOPHAGEAL REFLUX DISEASE WITHOUT ESOPHAGITIS Qualifiers: Esophagitis presence: esophagitis presence not specified Qualified Code(s) : K21.9 - Gastro-esophageal reflux disease without esophagitis Comment/Plan: Stable on meds (5) Depression with anxiety Chronic F41.8 - OTHER SPECIFIED ANXIETY DISORDERS Comment/Plan: Continue home meds (6) Type 2 diabetes mellitus Chronic E11.9 - TYPE 2 DIABETES MELLITUS WITHOUT COMPLICATIONS Qualifiers: Diabetes mellitus complication status: with neurologic complications Diabetes mellitus complication detail: with polyneuropathy Diabetic retinopathy severity: D Proliferative retinopathy type: P Diabetes mellitus macular edema: D Diabetes mellitus half-way insulin use: without half-way use Laterality: L Chronic kidney disease stage: C Qualified Code(s): E11.42 - Type 2 diabetes mellitus with diabetic polyneuropathy Comment/Plan: Continue oral agent and sliding scale regular insulin. Continue ADA diet. Case Care Discussed with: Patient, Family, Nursing Staff, Armored Car [employer] Education/Counseling Given To: Patient Education/Counseling Given Regarding: Diagnosis, Treatment, Prognosis, Follow Up Total Time: 45 min . Critical Care: No Code: 45799 (12+)
[2016-08-15] MEDS: Levofloxacin 750 mg/150 ml D5W 750 MG/150 ML RTU IV SCH (20:09)
[2016-08-15] MEDS: GUAIFENESIN 600 MG LA TAB PO SCH ×2 (20:11→20:18)
[2016-08-16] MEDS: Albuterol/Ipratropium Neb 3 ML NEB NEB SCH ×4 (01:39→20:12)
[2016-08-16] MEDS: METHYLPREDNISOLONE 125 MG/2 ML VIAL IV SCH ×3 (02:35→17:48)
[2016-08-16] MEDS: PANTOPRAZOLE 40 MG TAB PO SCH (05:43)
[2016-08-16] MEDS: GABAPENTIN 300 MG CAP PO SCH ×3 (05:43→20:56)
[2016-08-16 06:21] LABS: ALLEN'S TEST PASS; BEb 2.1 (+/- 2); TCO2 30.3 MMOL/L (23-27)
[2016-08-16 06:23] LABS: ABG Draw Site Right Radial
[2016-08-16] MEDS: REGULAR INSULIN 100 UNITS/ML - 3 ML VIAL SQ SCH ×4 (06:45→20:52)
[2016-08-16 07:17] LABS: AUTOMATED BASOPHIL 0.1 % (0-2); AUTOMATED LYMPH 7.7 % (17-44); AUTOMATED MONOCYTE 4.6 % (3-10); AUTOMATED NEUTROPHIL 87.6 % (45-76); MPV 7.8 fL (7.4-10.4)
[2016-08-16 07:29] LABS: BLOOD UREA NITROGEN 8 MG/DL (7-17); CALCIUM 9.2 MG/DL (8.4-10.2); CALCULATED OSMOLALITY 269 MOs/Kg (270-290); CHLORIDE 104 mEq/L (98-107); GLUCOSE 155 MG/DL (70-99); SODIUM LEVEL 139 mEq/L (137-146)
[2016-08-16] MEDS: MORPHINE 15 MG EXT REL TAB PO SCH ×2 (08:27→21:20)
[2016-08-16] MEDS: LEVOTHYROXINE 75 MCG (0.075 MG) TAB PO SCH (08:28)
[2016-08-16] MEDS: GUAIFENESIN 600 MG LA TAB PO SCH ×2 (08:28→20:59)
[2016-08-16] MEDS: DULOXETINE 60 MG CAPSULE PO SCH (08:28)
[2016-08-16] MEDS: ATORVASTATIN 40 MG TAB PO SCH (08:28)
--- NOTE | 2016-08-16 08:31 | DIRPT ---
CLINICAL DATA: Respiratory failure. EXAM: CHEST 2 VIEW COMPARISON: 08/14/[address] chest 02/26/2015. FINDINGS: Trachea is midline. Heart size normal. Right middle lobe airspace opacification has worsened slightly in the interval. Streaky densities are seen in the lung bases. No pleural fluid. IMPRESSION: Slight worsening in right middle lobe airspace consolidation, indicative of pneumonia. Followup PA and lateral chest X-ray is recommended in 3-4 weeks following trial of antibiotic therapy to ensure resolution and exclude underlying malignancy. Electronically Signed By: Malka Shane M.D. On: 08/16/2016 08:28
[2016-08-16] MEDS: CALCIUM CARBONATE + VITAMIN D 500 MG TAB PO SCH ×2 (12:10→17:48)
[2016-08-16] MEDS: ALPRAZOLAM 0.5 MG TAB PO PRN ×2 (12:10→21:35)
--- NOTE | 2016-08-16 12:47 | GENMEDPROG ---
Chief Complaint: acute on chronic resp failure, pneumonia, COPD exac, DM-2 Currently: Reports: Cough, Wheezing, AMARO, SOB, Sputum, Reflux Sx, Ambulating DVT Prophylaxis: Yes - Physical Examination Vital Signs and I&O: Last Vital Signs Temp 97.5 F 08/16/16 10:33 Pulse 88 08/16/16 10:33 Resp 18 08/16/16 10:33 BP 116/65 08/16/16 10:33 Pulse Ox 95 08/16/16 10:33 Oxygen Pulse Oxygen Saturation 95 O2 Device Venturi Mask Oxygen Flow Rate 8 Fraction of Inspired Oxygen ( 35 FIO2) Intake & Output 08/13/16 08/14/16 08/15/16 08/16/16 23:59 23:59 23:59 23:59 Intake Total 1600 5885 480 Output Total 200 4800 2050 Balance 1400 1085 -1570 Patient's weight 70.364 kg 69.201 kg General: Alert, Cooperative, No acute distress, Obese HEENT: Normal, PERRLA, EOMI, Anicteric Sclera Neck: Non-tender, Full range of motion, Normal Trachea alignment, No Masses palpable, Limited range of motion Lymphatics: Normal (no adenopathy) Respiratory: Diminished, Rhonchi, Wheezes. negative: Accessory Muscle Use, Retractions Cardiovascular: Regular rate, Normal S1, Normal S2, Murmurs GI: Normal bowel sounds, Soft, Non tender, No hepatospenomegaly, No masses Extremities/Musculoskeletal: Edema, Cyanosis, DJD, FROM Skin: Warm,Dry and Intact, No rashes, Other (Multiple tattoos) Neurological: Normal speech, Cranial nerves 3-12 NL Psych/Mental Status: Normal Affect, Cooperative - Assessment (1) Acute and chronic respiratory failure Acute J96.20 - ACUTE AND CHR RESP FAILURE, UNSP W HYPOXIA OR HYPERCAPNIA Qualifiers: Respiratory failure complication: hypoxia and hypercapnia Qualified Code(s) : J96.21 - Acute and chronic respiratory failure with hypoxia; J96.22 - Acute and chronic respiratory failure with hypercapnia Comment/Plan: Significantly improved over the past 24 hours with medication doses cut back. She still however require significant doses of oxygen when ambulating her sats dropped to 78%. (2) Right lower lobe pneumonia Acute J18.1 - LOBAR PNEUMONIA, UNSPECIFIED ORGANISM Qualifiers: Pneumonia type: due to unspecified organism Qualified Code(s): J18.1 - Lobar pneumonia, unspecified organism Comment/Plan: Continue antibiotics, currently patient received Levaquin and vancomycin. Continue aggressive pulmonary toilet and mucolytics. (3) COPD exacerbation Acute J44.1 - CHRONIC OBSTRUCTIVE PULMONARY DISEASE W (ACUTE) EXACERBATION Comment/Plan: Continue IV steroids and nebulized bronchodilators. (4) Type 2 diabetes mellitus Chronic E11.9 - TYPE 2 DIABETES MELLITUS WITHOUT COMPLICATIONS Qualifiers: Diabetes mellitus complication status: with neurologic complications Diabetes mellitus complication detail: with polyneuropathy Diabetes mellitus alf insulin use: without adjunct faculty for medical terminology use Qualified Code(s): E11.42 - Type 2 diabetes mellitus with diabetic polyneuropathy Comment/Plan: Continue oral agent and sliding scale regular insulin. Continue ADA diet. (5) Depression with anxiety Chronic F41.8 - OTHER SPECIFIED ANXIETY DISORDERS Comment/Plan: Continue home meds (6) Tobacco abuse Chronic Z72.0 - TOBACCO USE Comment/Plan: Patient receiving nicotine patch while hospitalized. She has previously received smoking cessation counseling in February of 2015. She states that she is interested in smoking cessation but has tried medications and they did not work. She is interested in the nicotine patch. Greater than 11 minutes were spent in discussing smoking cessation. (7) Hypothyroidism Chronic E03.9 - HYPOTHYROIDISM, UNSPECIFIED Qualifiers: Hypothyroidism type: acquired Qualified Code(s): E03.9 - Hypothyroidism, unspecified Comment/Plan: Noted. Continue meds Case Care Discussed with: Patient, Family Education/Counseling Given To: Patient, Family Member Education/Counseling Given Regarding: Diagnosis, Treatment, Prognosis Total Time: 25 min Critical Care: No Couseling Time (>50% in counseling/coordination): Yes Code: 48485 (12+)
[2016-08-16] MEDS: SUMATRIPTAN SUCCINATE 25 MG TAB PO PRN (13:00)
[2016-08-16] MEDS: ENOXAPARIN 40 MG/0.4 ML PFS SQ SCH (17:47)
[2016-08-16] MEDS ORDERED: GLUCOSE (ORAL GEL) 15 GM TUBE PO PRN (19:30)
[2016-08-16] MEDS ORDERED: DEXTROSE 25 GM/50 ML PFS IV PRN (19:30)
[2016-08-16] MEDS ORDERED: GLUCAGON 1 MG VIAL SQ PRN (19:30)
[2016-08-16] MEDS: Levofloxacin 750 mg/150 ml D5W 750 MG/150 ML RTU IV SCH (20:49)
[2016-08-16] MEDS: NS 1,000 ML IV SCH (20:52)
[2016-08-16] MEDS: DOXEPIN 25 MG CAP PO SCH (20:57)
[2016-08-16] MEDS: NICOTINE 14 MG PATCH TOP SCH (21:21)
[2016-08-17] MEDS: Albuterol/Ipratropium Neb 3 ML NEB NEB SCH ×4 (02:00→21:09)
[2016-08-17] MEDS: METHYLPREDNISOLONE 125 MG/2 ML VIAL IV SCH ×3 (03:06→18:23)
[2016-08-17] MEDS: NS 1,000 ML IV SCH ×3 (06:18→16:09)
[2016-08-17] MEDS: REGULAR INSULIN 100 UNITS/ML - 3 ML VIAL SQ SCH ×4 (06:19→21:28)
[2016-08-17] MEDS: PANTOPRAZOLE 40 MG TAB PO SCH (06:19)
[2016-08-17] MEDS: GABAPENTIN 300 MG CAP PO SCH ×3 (06:19→21:24)
[2016-08-17] MEDS: ATORVASTATIN 40 MG TAB PO SCH (09:02)
[2016-08-17] MEDS: DULOXETINE 60 MG CAPSULE PO SCH (09:02)
[2016-08-17] MEDS: LEVOTHYROXINE 75 MCG (0.075 MG) TAB PO SCH (09:02)
[2016-08-17] MEDS: GUAIFENESIN 600 MG LA TAB PO SCH ×2 (09:02→21:30)
[2016-08-17] MEDS: MORPHINE 15 MG EXT REL TAB PO SCH ×2 (09:27→21:23)
[2016-08-17] MEDS: CALCIUM CARBONATE + VITAMIN D 500 MG TAB PO SCH ×2 (13:02→18:23)
[2016-08-17] MEDS: ALPRAZOLAM 0.5 MG TAB PO PRN ×2 (16:00→21:28)
[2016-08-17] MEDS: OXYCODONE HCL 5 MG TABLET PO PRN (16:00)
--- NOTE | 2016-08-17 18:10 | GENMEDPROG ---
Chief Complaint: resp failure, pneumonia, COPD exac, DM-2 Currently: Reports: Cough, Wheezing, AMARO, SOB, Sputum, Tobacco Use/Hx, Reflux Sx , Ambulating DVT Prophylaxis: Yes - Physical Examination Vital Signs and I&O: Last Vital Signs Temp 97.6 F 08/17/16 14:03 Pulse 100 08/17/16 14:03 Resp 18 08/17/16 14:03 BP 160/84 08/17/16 14:03 Pulse Ox 93 08/17/16 14:03 Oxygen Pulse Oxygen Saturation 93 O2 Device Venturi Mask Oxygen Flow Rate 8 Fraction of Inspired Oxygen ( 35 FIO2) Intake & Output 08/14/16 08/15/16 08/16/16 08/17/16 23:59 23:59 23:59 23:59 Intake Total 1600 5885 2388 2905 Output Total 200 4800 3850 3200 Balance 1400 6888 -5014 -454 Patient's weight 70.364 kg 69.201 kg 69.088 kg General: Alert, Cooperative, No acute distress, Obese HEENT: Normal, PERRLA, EOMI, Anicteric Sclera Neck: Non-tender, Full range of motion, Normal Trachea alignment, No Masses palpable, Limited range of motion Lymphatics: Normal (no adenopathy) Respiratory: Diminished, Rhonchi, Wheezes. negative: Accessory Muscle Use, Retractions Cardiovascular: Regular rate, Normal S1, Normal S2, Murmurs GI: Normal bowel sounds, Soft, Non tender, No hepatospenomegaly, No masses Extremities/Musculoskeletal: Edema, Cyanosis, DJD, FROM Skin: Warm,Dry and Intact, No rashes, Other (Multiple tattoos) Neurological: Normal speech, Cranial nerves 3-12 NL Psych/Mental Status: Normal Affect, Cooperative - Assessment (1) Acute and chronic respiratory failure Acute J96.20 - ACUTE AND CHR RESP FAILURE, UNSP W HYPOXIA OR HYPERCAPNIA Qualifiers: Respiratory failure complication: hypoxia and hypercapnia Qualified Code(s) : J96.21 - Acute and chronic respiratory failure with hypoxia; J96.22 - Acute and chronic respiratory failure with hypercapnia Comment/Plan: Significantly improved over the past 24 hours with medication doses cut back. She still however require significant doses of oxygen when ambulating her sats dropped to 78%. (2) Right lower lobe pneumonia Acute J18.1 - LOBAR PNEUMONIA, UNSPECIFIED ORGANISM Qualifiers: Pneumonia type: due to unspecified organism Qualified Code(s): J18.1 - Lobar pneumonia, unspecified organism Comment/Plan: Continue antibiotics, currently patient received Levaquin and vancomycin. Continue aggressive pulmonary toilet and mucolytics. (3) COPD exacerbation Acute J44.1 - CHRONIC OBSTRUCTIVE PULMONARY DISEASE W (ACUTE) EXACERBATION Comment/Plan: Continue IV steroids and nebulized bronchodilators. (4) Type 2 diabetes mellitus Chronic E11.9 - TYPE 2 DIABETES MELLITUS WITHOUT COMPLICATIONS Qualifiers: Diabetes mellitus complication status: with neurologic complications Diabetes mellitus complication detail: with polyneuropathy Diabetes mellitus superintendent terminal insulin use: without superintendent terminal use Qualified Code(s): E11.42 - Type 2 diabetes mellitus with diabetic polyneuropathy Comment/Plan: Continue oral agent and sliding scale regular insulin. Continue ADA diet. (5) Depression with anxiety Chronic F41.8 - OTHER SPECIFIED ANXIETY DISORDERS Comment/Plan: Continue home meds (6) Tobacco abuse Chronic Z72.0 - TOBACCO USE Comment/Plan: Patient receiving nicotine patch while hospitalized. She has previously received smoking cessation counseling in February of 2015. She states that she is interested in smoking cessation but has tried medications and they did not work. She is interested in the nicotine patch. Greater than 11 minutes were spent in discussing smoking cessation. (7) Hypothyroidism Chronic E03.9 - HYPOTHYROIDISM, UNSPECIFIED Qualifiers: Hypothyroidism type: acquired Qualified Code(s): E03.9 - Hypothyroidism, unspecified Comment/Plan: Noted. Continue meds
[2016-08-17] MEDS: ENOXAPARIN 40 MG/0.4 ML PFS SQ SCH (18:22)
[2016-08-17] MEDS: Levofloxacin 750 mg/150 ml D5W 750 MG/150 ML RTU IV SCH (21:13)
[2016-08-17] MEDS: DOXEPIN 25 MG CAP PO SCH (21:24)
[2016-08-17] MEDS: NICOTINE 14 MG PATCH TOP SCH (21:31)
[2016-08-18] MEDS: NS 1,000 ML IV SCH ×4 (01:23→18:54)
[2016-08-18] MEDS: METHYLPREDNISOLONE 125 MG/2 ML VIAL IV SCH ×2 (01:23→10:13)
[2016-08-18] MEDS: Albuterol/Ipratropium Neb 3 ML NEB NEB SCH ×4 (02:32→20:41)
[2016-08-18] MEDS: GABAPENTIN 300 MG CAP PO SCH ×3 (05:46→21:37)
[2016-08-18] MEDS: PANTOPRAZOLE 40 MG TAB PO SCH (05:46)
[2016-08-18] MEDS: REGULAR INSULIN 100 UNITS/ML - 3 ML VIAL SQ SCH ×4 (05:46→21:43)
[2016-08-18] MEDS: LEVOTHYROXINE 75 MCG (0.075 MG) TAB PO SCH (08:47)
[2016-08-18] MEDS: MORPHINE 15 MG EXT REL TAB PO SCH ×2 (08:47→21:37)
[2016-08-18] MEDS: ATORVASTATIN 40 MG TAB PO SCH (08:48)
[2016-08-18] MEDS: DULOXETINE 60 MG CAPSULE PO SCH (08:48)
[2016-08-18] MEDS: GUAIFENESIN 600 MG LA TAB PO SCH ×2 (08:48→21:33)
--- NOTE | 2016-08-18 09:47 | PCM.DCS92 ---
- Final/Secondary Discharge Diagnosis (1) Acute and chronic respiratory failure Acute J96.20 - ACUTE AND CHR RESP FAILURE, UNSP W HYPOXIA OR HYPERCAPNIA Present on Admission: Yes hypoxia and hypercapnia J96.21 - Acute and chronic respiratory failure with hypoxia; J96.22 - Acute and chronic respiratory failure with hypercapnia Comment: Significantly improved over the past 24 hours with medication doses cut back. She no longer requires oxygen - (2) Right lower lobe pneumonia Acute J18.1 - LOBAR PNEUMONIA, UNSPECIFIED ORGANISM Present on Admission: Yes due to unspecified organism J18.1 - Lobar pneumonia, unspecified organism Comment: Continue antibiotics, currently patient receiving Levaquin - will discharge on PO Levaquin. (3) COPD exacerbation Acute J44.1 - CHRONIC OBSTRUCTIVE PULMONARY DISEASE W (ACUTE) EXACERBATION Present on Admission: Yes Comment: Continue PO steroid taper and nebulized bronchodilators. (4) Type 2 diabetes mellitus Chronic E11.9 - TYPE 2 DIABETES MELLITUS WITHOUT COMPLICATIONS Present on Admission: Yes with neurologic complications with polyneuropathy without residential use E11.42 - Type 2 diabetes mellitus with diabetic polyneuropathy Comment: Continue oral agent and sliding scale regular insulin. Continue ADA diet. (5) Depression with anxiety Chronic F41.8 - OTHER SPECIFIED ANXIETY DISORDERS Present on Admission: Yes Comment: Continue home meds (6) Tobacco abuse Chronic Z72.0 - TOBACCO USE Comment: Patient receiving nicotine patch while hospitalized. She has previously received smoking cessation counseling in February of 2015. She states that she is interested in smoking cessation but has tried medications and they did not work. She is interested in the nicotine patch. Greater than 15 minutes were spent in discussing smoking cessation. (7) Hypothyroidism Chronic E03.9 - HYPOTHYROIDISM, UNSPECIFIED acquired E03.9 - Hypothyroidism, unspecified Comment: Noted. Continue meds (8) Elevated BP without diagnosis of hypertension Acute R03.0 - ELEVATED BLOOD-PRESSURE READING, W/O DIAGNOSIS OF HTN Present on Admission: Yes Comment: WILL ADD AMLODIPINE 5 MG Q HS AND HAVE PATIENT FOLLOW UP WITH PCP 1 WEEK. Discharge Disposition: Home Discharge Condition: Improved Cognitive Discharge Status: Unimpaired Fuctional Discharge Status: Independent Physician Follow up/Referrals: Everett Smith MD [NonStaff] - 08/25/16 2:00 pm Home Medications / New Prescriptions: New Levofloxacin [Levaquin] 750 mg PO DAILY #5 tablet Nicotine [Nicoderm] 14 mg TOP Q24H #30 pat Prednisone [Sterapred Ds] 10 mg PO DIR #21 pack Continue Esomeprazole Mag Trihydrate [Nexium] 40 mg PO DAILY Duloxetine HCl [Cymbalta] 60 mg PO DAILY #30 Doxepin HCl 25 mg PO HS #30 Gabapentin [Neurontin] 300 mg PO TID #100 Levothyroxine [Synthroid, Levoxyl] 75 mcg PO DAILY #30 Ibuprofen Tablet [Motrin] 800 mg PO TID PRN PRN Reason: Pain Linaclotide [Linzess] 290 mcg PO DAILY PRN PRN Reason: Constipation Albuterol Sulfate [Proair Hfa] 2 puff INH Q4-6H PRN PRN Reason: Shortness Of Breath Albuterol/Ipratropium Neb [Duoneb] 3 ml NEB RTQ6 #120 nebu Calcium Carbonate/Vitamin D3 [Calcium 600 + Vit D 400 Softgl] 1 cap PO BID Atorvastatin Calcium [Lipitor] 40 mg PO DAILY Promethazine [Phenergan] 25 mg PO Q8H PRN PRN Reason: Nausea/Vomiting Oxycodone HCl [Oxycodone Immediate Release] 10 mg PO Q8H PRN PRN Reason: Pain Alprazolam [Xanax] 1 mg PO BID PRN PRN Reason: Anxiety Sumatriptan Succinate [Imitrex] 100 mg PO DIR PRN PRN Reason: Migraine Headache Morphine Sulfate [Morphine Sulfate ER] 30 mg PO Q12H Metformin HCl [Metformin HCl ER] 500 mg PO DAILY #30 tab.sr.24h O2 Device: Venturi Mask Diet at Discharge: Heart Healthy, Diabetic, 1800 Calorie Call Office For: Worsening Symptoms Discontinue use of:: Alcohol, All Types of Tobacco - DC Summary Notes Hospital Course Note:: Discharge summary on patient named PILAR CAMARILLO admitted to [facility] on 08/14/16 by Jay Rose MD. Date of discharge is [08/19/16]. The patient is a 56 yo woman who presents with shortness of breath. She has been sick for 3 weeks. She had an appointment with her primary care doctor, who gave her a Z pack and an antihistamine, but she continued to get worse. She does have some chest pain with shortness of breath. The chest pain is primarily associated with coughing. The patient states that normally when she has a respiratory infection and flare-up of her respiratory issues, she usually gets very sick and requires IV antibiotics. She states that usually she gets IV Levaquin and IV vancomycin. She does have a history of MRSA. She reports she thinks she has had MRSA pneumonia in the past. She was admitted to the medical service, had blood, urine, and sputum cultures obtained and was started on IV antibiotics with Levaquin and vancomycin. She was septic at the time of admission, but that quickly resolved. She was also started on IV steroids and aggressive pulmonary toilet. Her cultures were all negative and she has improved and is no longer wheezing. Her CXR did show some infiltrate in the right middle lobe and a follow-up film in 1-2 weeks might be advisable for her PCP. She is being discharged today on PO Levaquin and a steroid taper. She is to follow up with Dr. Smith in 1 week. She will also be referred to Dr. Carrillo in his office for further testing as an outpatient. She does have chronic lung disease and can benefit from pulmonary follow-up. Code: 03824 (>30min.) - Physical Exam Vital Signs: Last Vital Signs Temp 98.8 F 08/18/16 06:00 Pulse 81 08/18/16 08:00 Resp 18 08/18/16 06:00 BP 136/78 08/18/16 06:00 Pulse Ox 92 08/18/16 08:00 Oxygen Pulse Oxygen Saturation 92 O2 Device Venturi Mask Oxygen Flow Rate 8 Fraction of Inspired Oxygen ( 35 FIO2) Constitutional: Alert (Awake), No apparent distress Oriented to: Time, Person, Place - HEENT Head: Normal ( normocephalic) Eye: Normal (PERRL, EOMI, Sclera white) Oropharynx: Normal (Pharynx:Moist without exudate,Gums-no swelling) Tympanic Membrane: Normal ENT EAC: Normal TMJ: Normal Nose: No Symptoms Reported (septum midline) - Respiratory/Cardiovascular Respiratory: Diminished, Rhonchi, Wheezes. negative: Accessory Muscle Use, Retractions - GI Auscultation: Normal (NABS) Palpation: Normal (Soft,No rebound or guarding, non distended) Tenderness: Non tender Staton's Sign: Negative - Musculoskeletal Back: Normal (Non-Tender) Extremities: Normal (Normal tone, Pulses 2+ No cyanosis or edema, FROM) - Integumentary Lymphatics: Normal (no adenopathy) - Neurologic Memory Impaired: Normal Cerebellar: Normal Mood Description: Normal Perception: Normal
[2016-08-18] MEDS: CALCIUM CARBONATE + VITAMIN D 500 MG TAB PO SCH ×2 (12:58→17:16)
[2016-08-18] MEDS: ALPRAZOLAM 0.5 MG TAB PO PRN (14:27)
[2016-08-18] MEDS: OXYCODONE HCL 5 MG TABLET PO PRN (14:34)
[2016-08-18] MEDS: SUMATRIPTAN SUCCINATE 25 MG TAB PO PRN (17:42)
[2016-08-18] MEDS: ENOXAPARIN 40 MG/0.4 ML PFS SQ SCH (18:46)
--- NOTE | 2016-08-18 20:14 | HIMCONS ---
DATE OF CONSULT: The patient was seen in the pulmonary rounds. REQUESTING PHYSICIAN: Gabbi Henderson MD HISTORY OF PRESENT ILLNESS: This patient is a 56-year-old lady, who has a history of dyspnea and shortness of breath. The patient has had multiple pneumonias, according to her at least 4 times in the past 2 years and has been sick this time for about 3 years. She has had outpatient treatment by Dr. Everett Smith. However, did not improve and ended up in the hospital. She has been coughing up some phlegm with some tightness in her chest and minimal shortness of breath; however, she feels a whole lot better since she has been in the hospital. The patient has a history of MRSA and was placed on antibiotics and has been improving. PAST MEDICAL HISTORY: Significant for hypertension, hypercholesterolemia, COPD, gastroesophageal reflux disease, arthritis, cancer, diabetes, hypothyroidism, cerebrovascular accident, depression, and anxiety, history of hysterectomy, tonsillectomy, and adenoidectomy. ALLERGIES: THE PATIENT IS ALLERGIC TO TYLENOL AND DARVOCET CAUSING HIVES. MEDICATIONS: In the chart are noted. FAMILY HISTORY: Significant for mother having diabetes and of COPD. Father had hypertension. SOCIAL HISTORY: The patient has been a smoker most of her adult life. No history of alcohol or drug abuse. She states she quit smoking 2 weeks ago. PHYSICAL EXAMINATION: VITAL SIGNS: Temperature is 97.9 degrees Fahrenheit, pulse 91, respirations 18, blood pressure 155/97, pulse ox 95% on 2 liters oxygen. CHEST: Clear to auscultation. No wheezing. HEART: S1, S2. Regular. No murmur. EXTREMITIES: No clubbing, cyanosis, or edema. ABDOMEN: Soft and nontender. Bowel sounds present. Hepatosplenomegaly is absent. NEURO: The patient moving all extremities. LABORATORY DATA: White count is 14.9 that is 2 days ago with hemoglobin 12.5, hematocrit 36.9, and platelets are 280. PT and INR within normal limits on admission. Blood gas 2 days ago; pH was 7.35, pCO2 of 52, PO2 of 75, on 35% Ventimask. Sodium 139, potassium 4.2, chloride 104, CO2 is 29, BUN is 8, creatinine 0.5, glucose is 155. IMAGING REPORTS: X-ray of chest was seen personally. The patient seems to have worsening right middle lobe infiltrate and that x-ray was also 2 days old. IMPRESSION: 1. [id number] respiratory failure. 2. Chronic obstructive pulmonary disease exacerbation with right lower lobe pneumonia. 3. Multiple recurrent episode of pneumonias. 4. History of sepsis on this admission and multiple other issues. PLAN: I think that the patient has been relatively stable. She has been on Levaquin and has been on Solu-Medrol 40 mg IV q.12 hours. Her white count has increased 2 days ago to 14.9, and therefore, I would go ahead and repeat a chest x-ray, repeat CBC, and a blood gas in the morning. I think, the patient should be able to go home if everything looks good, and I will be glad to see her in my office within few days after her discharge. She would probably need an outpatient allergy testing, pulmonary function test, etc., and would follow up closely as an outpatient Thank you very much for the consultation. I will follow the patient with you. [id number]
--- NOTE | 2016-08-18 21:20 | GENMEDPROG ---
Chief Complaint: respiratory failure, pneumonia, COPD exac, DM-2 Subjective Note: Patient c/o that she is not well enough to go home today, feels weak. O2 sat on room air is 95%. Notes Reviewed: Yes: Events from last night noted and discussed with Clinical Staff Current Medication List: Reviewed Currently: Reports: Cough, Wheezing, AMARO, SOB, Sputum, Tobacco Use/Hx, Reflux Sx , Ambulating DVT Prophylaxis: Yes - Physical Examination Vital Signs and I&O: Last Vital Signs Temp 97.9 F 08/18/16 18:10 Pulse 91 08/18/16 18:10 Resp 18 08/18/16 18:10 BP 155/97 08/18/16 18:10 Pulse Ox 95 08/18/16 20:00 Oxygen Pulse Oxygen Saturation 95 O2 Device Room Air Oxygen Flow Rate 6 Fraction of Inspired Oxygen ( 35 FIO2) Intake & Output 08/15/16 08/16/16 08/17/16 08/18/16 23:59 23:59 23:59 23:59 Intake Total 5885 2388 4741 3806 Output Total 4800 3850 4300 3900 Balance 1085 -1462 441 -94 Patient's weight 69.201 kg 69.088 kg 70.08 kg General: Alert, Oriented x3, Cooperative, No acute distress HEENT: Normal, PERRLA, EOMI, Anicteric Sclera, Mucous membr. moist/pink Neck: Non-tender, Full range of motion, Normal Trachea alignment, Normal inspection Lymphatics: Normal (no adenopathy) Respiratory: Normal - CTA, Diminished. negative: Accessory Muscle Use, Retractions Cardiovascular: Regular rate and rhythm, Normal S1, Normal S2. negative: Murmurs GI: Normal bowel sounds, Soft, Non tender, No masses Extremities/Musculoskeletal: Normal pulses, FROM, Motor 5/5 throughout. negative: Edema, Clubbing, Cyanosis Skin: Warm,Dry and Intact, No rashes, No breakdown, No significant lesion Neurological: Normal Steady Gait, Normal speech, Strength at 5/5 X4 ext, Normal tone, Cranial nerves 3-12 NL Psych/Mental Status: Appropriate, Normal Affect, Cooperative Lab/DI/Studies Reviewed: Laboratory Tests 08/18/16 08/18/16 08/18/16 05:17 11:58 16:39 POC Capillary Glucose 163 H 257 H 227 H - Assessment (1) Acute and chronic respiratory failure Acute J96.20 - ACUTE AND CHR RESP FAILURE, UNSP W HYPOXIA OR HYPERCAPNIA Qualifiers: Respiratory failure complication: hypoxia and hypercapnia Qualified Code(s) : J96.21 - Acute and chronic respiratory failure with hypoxia; J96.22 - Acute and chronic respiratory failure with hypercapnia Comment/Plan: Significantly improved over the past 24 hours with medication doses cut back. She no longer requires oxygen - (2) Right lower lobe pneumonia Acute J18.1 - LOBAR PNEUMONIA, UNSPECIFIED ORGANISM Qualifiers: Pneumonia type: due to unspecified organism Qualified Code(s): J18.1 - Lobar pneumonia, unspecified organism Comment/Plan: Continue antibiotics, currently patient receiving Levaquin - will discharge on PO Levaquin. (3) COPD exacerbation Acute J44.1 - CHRONIC OBSTRUCTIVE PULMONARY DISEASE W (ACUTE) EXACERBATION Comment/Plan: Continue PO steroid taper and nebulized bronchodilators. (4) Type 2 diabetes mellitus Chronic E11.9 - TYPE 2 DIABETES MELLITUS WITHOUT COMPLICATIONS Qualifiers: Diabetes mellitus complication status: with neurologic complications Diabetes mellitus complication detail: with polyneuropathy Diabetes mellitus skilled nursing insulin use: without skilled nursing use Qualified Code(s): E11.42 - Type 2 diabetes mellitus with diabetic polyneuropathy Comment/Plan: Continue oral agent and sliding scale regular insulin. Continue ADA diet. (5) Depression with anxiety Chronic F41.8 - OTHER SPECIFIED ANXIETY DISORDERS Comment/Plan: Continue home meds (6) Tobacco abuse Chronic Z72.0 - TOBACCO USE Comment/Plan: Patient receiving nicotine patch while hospitalized. She has previously received smoking cessation counseling in February of 2015. She states that she is interested in smoking cessation but has tried medications and they did not work. She is interested in the nicotine patch. Greater than 15 minutes were spent in discussing smoking cessation. (7) Hypothyroidism Chronic E03.9 - HYPOTHYROIDISM, UNSPECIFIED Qualifiers: Hypothyroidism type: acquired Qualified Code(s): E03.9 - Hypothyroidism, unspecified Comment/Plan: Noted. Continue meds - Plan Will reassess patient clinical status with additional lab evaluation and repeat CXR. She has requested to see warp changer also. I feel she is stable for discharge, but the patient does not feel she is ready to go home. Case Care Discussed with: Patient, Consultants, Nursing Staff, Resource Management Education/Counseling Given To: Patient Education/Counseling Given Regarding: Diagnosis, Treatment, Prognosis Total Time: 55 min Critical Care: No Couseling Time (>50% in counseling/coordination): Yes Code: 87986 (12+)
[2016-08-18] MEDS: Levofloxacin 750 mg/150 ml D5W 750 MG/150 ML RTU IV SCH (21:30)
[2016-08-18] MEDS: METHYLPREDNISOLONE 40 MG/1 ML VIAL IV SCH (21:37)
[2016-08-18] MEDS: DOXEPIN 25 MG CAP PO SCH (21:37)
[2016-08-18] MEDS: NICOTINE 14 MG PATCH TOP SCH (23:01)
[2016-08-19] MEDS: Albuterol/Ipratropium Neb 3 ML NEB NEB SCH ×3 (01:37→15:12)
[2016-08-19] MEDS: NS 1,000 ML IV SCH (04:38)
[2016-08-19 05:22] LABS: ALLEN'S TEST PASS; BEb 11.8 (+/- 2); TCO2 40.3 MMOL/L (23-27)
[2016-08-19 05:24] LABS: ABG Draw Site Right Brachial
[2016-08-19] MEDS: GABAPENTIN 300 MG CAP PO SCH ×2 (06:02→13:25)
[2016-08-19] MEDS: REGULAR INSULIN 100 UNITS/ML - 3 ML VIAL SQ SCH ×3 (06:02→18:00)
[2016-08-19] MEDS: PANTOPRAZOLE 40 MG TAB PO SCH (06:02)
[2016-08-19 07:19] LABS: MPV 7.8 fL (7.4-10.4)
[2016-08-19 07:41] LABS: BLOOD UREA NITROGEN 13 MG/DL (7-17); CALCIUM 8.3 MG/DL (8.4-10.2); CALCULATED OSMOLALITY 271 MOs/Kg (270-290); CHLORIDE 94 mEq/L (98-107); GLUCOSE 182 mg/dL (70-99); SODIUM LEVEL 138 mEq/L (137-146)
[2016-08-19 07:56] LABS: SEG NEUTROPHIL 74 % (45-76)
--- NOTE | 2016-08-19 08:02 | DIRPT ---
CLINICAL DATA: Respiratory failure. EXAM: CHEST 2 VIEW COMPARISON: 08/16/2016. FINDINGS: Mediastinum hilar structures normal. Cardiomegaly with normal pulmonary vascularity. Low lung volumes with mild bibasilar atelectasis. Partial clearing of right middle lobe infiltrate. No significant pleural effusion or pneumothorax. IMPRESSION: 1. Partial clearing of right middle lobe infiltrate. 2. Low lung volumes with mild bibasilar atelectasis. 3. Stable mild cardiomegaly. Electronically Signed By: Jose Vieyra On: 08/19/2016 07:59
[2016-08-19] MEDS: MORPHINE 15 MG EXT REL TAB PO SCH (09:57)
[2016-08-19] MEDS: GUAIFENESIN 600 MG LA TAB PO SCH (09:57)
[2016-08-19] MEDS: ATORVASTATIN 40 MG TAB PO SCH (09:58)
[2016-08-19] MEDS: LEVOTHYROXINE 75 MCG (0.075 MG) TAB PO SCH (09:58)
[2016-08-19] MEDS: METHYLPREDNISOLONE 40 MG/1 ML VIAL IV SCH (09:58)
[2016-08-19] MEDS: DULOXETINE 60 MG CAPSULE PO SCH (09:58)
[2016-08-19] MEDS: CALCIUM CARBONATE + VITAMIN D 500 MG TAB PO SCH ×2 (11:15→18:01)
[2016-08-19] MEDS ORDERED: POTASSIUM CHLORIDE 20 MEQ/15 ML ORAL SOLN PO ONE (12:30)
--- NOTE | 2016-08-19 13:29 | PCM.PULM ---
Chief Complaint: Bacterial pneumonia Respiratory failure COPD exacerbation Sepsis Uneventful overnight Patient on room air breathing is fair still has some shortness of breath on exertions and when she walks, dry cough. No chest pain reported Medication list and notes reviewed:yes,Events from last night noted and discussed with Clinical Staff - Physical Examination Vital Signs and I&O: Last Vital Signs Temp 97.0 F L 08/19/16 09:42 Pulse 96 08/19/16 09:42 Resp 18 08/19/16 09:42 BP 151/88 08/19/16 09:42 Pulse Ox 93 08/19/16 09:42 Oxygen Pulse Oxygen Saturation 93 O2 Device Venturi Mask Oxygen Flow Rate 6 Fraction of Inspired Oxygen ( 35 FIO2) Intake & Output 08/16/16 08/17/16 08/18/16 08/19/16 23:59 23:59 23:59 23:59 Intake Total 2388 4741 3806 2388 Output Total 3850 4300 4500 2100 Balance -1462 441 -694 288 Patient's weight 69.201 kg 69.088 kg 70.08 kg 71.271 kg General: Alert, Oriented x3, Cooperative, No acute distress, Fatigue Respiratory: Normal - CTA, Diminished Cardiovascular: Regular rate, Regular rate and rhythm, Normal S1, No Gallops, Rubs/Murmurs, Normal S2, Good Pedal Pulses GI: Normal bowel sounds, Soft, Non tender, No hepatospenomegaly, No masses Extremities/Musculoskeletal: Normal pulses Skin: Warm,Dry and Intact, No rashes, No breakdown, No significant lesion Neurological: Normal Steady Gait, Normal speech, Strength at 5/5 X4 ext, Cranial nerves 3-12 NL Psych/Mental Status: Appropriate Result Diagrams: 08/19/16 06:40 08/19/16 06:40 Labs (last 24 hours): Laboratory Results - last 24 hr 08/18/16 08/18/16 08/19/16 16:39 21:42 05:17 WBC RBC Hgb Hct MCV MCH MCHC RDW Plt Count MPV Neut % (Auto) Lymph % (Auto) [place] % (Auto) Eos % (Auto) Baso % (Auto) Absolute Neuts (auto) Absolute Lymphs (auto) Seg Neuts % (Manual) Band Neutrophils % Lymphocytes % (Manual) Monocytes % (Manual) Absolute Neutrophils Absolute Lymphocytes Platelet Estimate RBC Morphology Puncture Site Right brachial pH 7.430 pCO2 58.0 H pO2 57.0 L HCO3 38.5 H Total CO2 40.3 H Base Excess 11.8 H FiO2 % 2 Specimen Drawn By Rakma Sodium Potassium Chloride Carbon Dioxide Anion Gap BUN Creatinine Estimated GFR (MDRD) Glucose POC Capillary Glucose 227 H 206 H Calculated Osmolality Calcium Magnesium Eog-Y-Jkjilbuaybm Pept 08/19/16 08/19/16 08/19/16 05:29 06:40 06:40 WBC 10.2 RBC 4.68 Hgb 13.6 Hct 39.2 MCV 84 MCH 29.0 MCHC 34.6 RDW 16.2 H Plt Count 314 MPV 7.8 Neut % (Auto) Cancelled Lymph % (Auto) Cancelled [place] % (Auto) Cancelled Eos % (Auto) Cancelled Baso % (Auto) Cancelled Absolute Neuts (auto) Cancelled Absolute Lymphs (auto) Cancelled Seg Neuts % (Manual) 74 Band Neutrophils % 2 Lymphocytes % (Manual) 19 Monocytes % (Manual) 5 Absolute Neutrophils 7.75 Absolute Lymphocytes 1.94 Platelet Estimate Norm RBC Morphology 1+ aniso Puncture Site pH pCO2 pO2 HCO3 Total CO2 Base Excess FiO2 % Specimen Drawn By Sodium 138 Potassium 3.3 L Chloride 94 L Carbon Dioxide 35 H Anion Gap 12 BUN 13 Creatinine 0.50 L Estimated GFR (MDRD) > 60 Glucose 182 H POC Capillary Glucose 172 H Calculated Osmolality 271 Calcium 8.3 L Magnesium 1.70 Cpz-G-Qpbvibjirmw Pept 1430 H 08/19/16 11:10 WBC RBC Hgb Hct MCV MCH MCHC RDW Plt Count MPV Neut % (Auto) Lymph % (Auto) [place] % (Auto) Eos % (Auto) Baso % (Auto) Absolute Neuts (auto) Absolute Lymphs (auto) Seg Neuts % (Manual) Band Neutrophils % Lymphocytes % (Manual) Monocytes % (Manual) Absolute Neutrophils Absolute Lymphocytes Platelet Estimate RBC Morphology Puncture Site pH pCO2 pO2 HCO3 Total CO2 Base Excess FiO2 % Specimen Drawn By Sodium Potassium Chloride Carbon Dioxide Anion Gap BUN Creatinine Estimated GFR (MDRD) Glucose POC Capillary Glucose 218 H Calculated Osmolality Calcium Magnesium Wod-R-Pwzweqcwtiq Pept Lab/DI/Studies Reviewed: EKG: NSR, NO ST or ST wave changes noted Cxray: 1 view Chest x-ray was seen personally patient seems to be improving as for as the right middle lobe infiltrate is concerned with hyperinflated lung yates and scattered atelectasis Medications Acetaminophen (Tylenol Tablet) 650 mg PO Q6H PRN; Protocol PRN Reason: Mild Pain or Fever above 100.4 Stop: 08/28/16 16:59 Albuterol (Proventil, Ventolin) 3 ml NEB Q2H PRN PRN Reason: Wheezing Stop: 08/28/16 23:05 Last Admin: 08/15/16 05:50 Dose: 3 ml Alprazolam (Xanax) 1 mg PO BID PRN PRN Reason: Anxiety Stop: 08/28/16 23:25 Last Admin: 08/18/16 14:27 Dose: 1 mg Amlodipine Besylate (Norvasc) 5 mg PO HS [facility] PAUL Stop: 09/02/16 20:59 Doxepin HCl (Sinequan) 25 mg PO HS [facility] Stop: 08/28/16 23:44 Last Admin: 08/18/16 21:37 Dose: 25 mg Duloxetine HCl (Cymbalta) 60 mg PO DAILY JOHN PAUL Stop: 08/29/16 08:59 Last Admin: 08/19/16 09:58 Dose: 60 mg Enoxaparin Sodium (Lovenox) 40 mg SQ 1800 JOHN PAUL Stop: 08/28/16 23:44 Last Admin: 08/18/16 18:46 Dose: 40 mg Gabapentin (Neurontin) 300 mg PO TID JOHN PAUL Stop: 08/28/16 23:44 Last Admin: 08/19/16 13:25 Dose: 300 mg Guaifenesin (Mucinex) 1,200 mg PO Q12 JOHN PAUL Stop: 08/29/16 16:59 Last Admin: 08/19/16 09:57 Dose: Not Given Insulin Human Regular (Humulin R) 0 units SQ ACHS JOHN PAUL PRN Reason: Protocol Stop: 08/30/16 16:59 Last Admin: 08/19/16 11:32 Dose: 6 units Levofloxacin/Dextrose (Levaquin 750 Mg) 750 mg in 150 mls @ 100 mls/hr IV Q24H JOHN PAUL Stop: 08/22/16 19:59 Last Admin: 08/18/16 21:30 Dose: 100 mls/hr Levothyroxine Sodium (Synthroid, Levoxyl) 75 mcg PO DAILY [facility] PAUL Stop: 08/29/16 08:59 Last Admin: 08/19/16 09:58 Dose: 75 mcg Methylprednisolone Sodium Succinate (Solu-Medrol) 40 mg IV Q12H [facility] Stop: 09/01/16 16:59 Last Admin: 08/19/16 09:58 Dose: 40 mg Morphine Sulfate (Ms Contin) 30 mg PO Q12H [facility] Stop: 08/22/16 08:59 Last Admin: 08/19/16 09:57 Dose: 30 mg Nicotine (Nicoderm) 14 mg TOP Q24H [facility] Stop: 08/29/16 01:59 Last Admin: 08/18/16 23:01 Dose: 14 mg Ondansetron HCl (Zofran) 4 mg IV Q6H PRN PRN Reason: Nausea/Vomiting - First Option Stop: 08/28/16 16:59 Oxycodone HCl (Oxycodone Immediate Release (Oxyir)) 10 mg PO Q8H PRN PRN Reason: moderate to severe pain Stop: 08/21/16 23:35 Last Admin: 08/18/16 14:34 Dose: 10 mg Pantoprazole Sodium (Protonix) 40 mg PO 0600 [facility] Stop: 08/29/16 05:59 Last Admin: 08/19/16 06:02 Dose: 40 mg Sumatriptan Succinate (Imitrex) 100 mg PO DIR PRN PRN Reason: Migraine Headache Stop: 08/28/16 23:36 Last Admin: 08/18/16 17:42 Dose: 100 mg Sodium Chloride (Normal Saline) 1,000 mls @ 125 mls/hr IV Q24H [facility] Stop: 08/29/16 03:59 Last Admin: 08/19/16 04:38 Dose: 125 mls/hr Temazepam (Restoril) 15 mg PO 2100,2200 PRN PRN Reason: Sleep or Insomnia Stop: 08/28/16 16:59 Last Admin: 08/18/16 21:37 Dose: 15 mg - Assessment/Plan (1) Acute respiratory failure with hypoxia Acute J96.01 - ACUTE RESPIRATORY FAILURE WITH HYPOXIA Comment/Plan: Patient has been improving slowly I think it is about time for patient to go home and I would be glad to see the patient in my office within the next few days would continue supportive care with DVT and GI prophylaxis antibiotics to complete a total of 10 days with a prescription of prednisone taper and would follow the patient closely continue nebulizers oxygen as needed (2) Bacterial pneumonia Acute J15.9 - UNSPECIFIED BACTERIAL PNEUMONIA Comment/Plan: Continue the current antibiotics would change it to p.o. (3) Sepsis Acute A41.9 - SEPSIS, UNSPECIFIED ORGANISM Comment/Plan: Sepsis is improved significantly would follow the patient closely as an out patient (4) Acute and chronic respiratory failure Acute J96.20 - ACUTE AND CHR RESP FAILURE, UNSP W HYPOXIA OR HYPERCAPNIA hypoxia and hypercapnia J96.21 - Acute and chronic respiratory failure with hypoxia; J96.22 - Acute and chronic respiratory failure with hypercapnia Comment/Plan: Patient is improving slowly however it I think would require oxygen (5) COPD exacerbation Acute J44.1 - CHRONIC OBSTRUCTIVE PULMONARY DISEASE W (ACUTE) EXACERBATION Comment/Plan: Continue the above-mentioned care would follow the patient as an outpatient within a week or so
[2016-08-19 14:36] VITALS: TEMP 97.7
[2016-08-19 14:58] VITALS: PULSE 96
[2016-08-19] MEDS: ALPRAZOLAM 0.5 MG TAB PO PRN (15:47)
[2016-08-19] MEDS ORDERED: AMLODIPINE 5 MG TAB PO ONE (17:16)
[2016-08-19] MEDS: ENOXAPARIN 40 MG/0.4 ML PFS SQ SCH (18:02)
[2016-08-19 19:03] VITALS: BP 140/90
[2016-08-19] MEDS ORDERED: AMLODIPINE 5 MG TAB PO SCH (21:00)
== END 2016-08-19 19:30 | disposition home health service (06) | DRG 193 ==
LOC: ED 17:58 → MPS3 20:45
PROVIDERS: ADMIT Internal Medicine; ATTEND Family Medicine
PROC: 039B3ZZ Drainage of Right Radial Artery, Percutaneous Approach (ICD-10-PCS; principal; 2016-08-14)
DX: J18.1 Lobar pneumonia, unspecified organism (principal); J96.21 Acute and chronic respiratory failure with hypoxia; E11.42 Type 2 diabetes mellitus with diabetic polyneuropathy; J96.22 Acute and chronic respiratory failure with hypercapnia; J44.1 Chronic obstructive pulmonary disease with (acute) exacerbation; J44.0 Chronic obstructive pulmonary disease with (acute) lower respiratory infection; F41.8 Other specified anxiety disorders; F17.210 Nicotine dependence, cigarettes, uncomplicated; E03.9 Hypothyroidism, unspecified; R03.0 Elevated blood-pressure reading, without diagnosis of hypertension; Z86.14 Personal history of Methicillin resistant Staphylococcus aureus infection; E78.00 Pure hypercholesterolemia, unspecified; Z87.01 Personal history of pneumonia (recurrent); K21.9 Gastro-esophageal reflux disease without esophagitis; M19.90 Unspecified osteoarthritis, unspecified site; Z86.73 Personal history of transient ischemic attack (TIA), and cerebral infarction without residual deficits; Z88.8 Allergy status to other drugs, medicaments and biological substances; Z79.899 Other long term (current) drug therapy
CPT/HCPCS: 36415; 36600; 71020; 80048; 80053; 80202; 81001; 82803; 82947; 82962; 83036; 83605; 83690; 83735; 83880; 84484; 85007; 85025; 85027; 85610; 85730; 87040; 87070; 87086; 87205; 87641; 93005; 94640; 96361; 96365; 96372; 96375; 98960; 99284; 99406; J1200; J1650; J1885; J1956; J2765; J2920; J2930; J3370; J3490; J7060; J7620